=== PATIENT | female | born 1990 | race Caucasian/White ===

== ENCOUNTER 2017-03-26 15:07 | Emergency (ER) | payer OTHER ==
[2017-03-26 15:18] VITALS: BP 139/82; PULSE 93; TEMP 98.1; BMI 18.4
[2017-03-26] MEDS ORDERED: DIPHTH,PERTUSS(ACELL),TET 0.5 ML DISP.SYRIN IM ONE (16:09)
--- NOTE | 2017-03-26 16:09 | PDOC ---
History of Present Illness - General Chief Complaint: Injury Stated Complaint: RT FOOT WOUND Time Seen by Provider: 03/26/17 15:23 History Source: Patient Exam Limitations: No Limitations - History of Present Illness Initial Comments: 03/26/17 16:10 stepped on heavy gauged tach at work today and punctured through flip-flop of right foot. Patient states cleaned, put bacitracin and a Band-Aid over and came for evaluation. 03/26/17 16:19 Occurred: reports: this morning Severity: reports: mild, moderate Pain Location: reports: lower extremity (right plantar) Past History - Travel Traveled outside of the country in the last 30 days: No Close contact w/someone who was outside of country & ill: No - Past Medical History Allergies/Adverse Reactions: Allergies Allergy/AdvReac Type Severity Reaction Status Date / Time No Known Allergies Allergy Verified 03/26/17 15:17 Home Medications: Ambulatory Orders NK [No Known Home Medication] 03/26/17 Other medical history: denies - Immunization History Td Vaccination: Yes Immunization Up to Date: Yes - Psycho/Social/Smoking Cessation Hx Anxiety: No Suicidal Ideation: No Smoking Status: Yes Smoking History: Never smoked Number of Cigarettes Smoked Daily: 10 Information on smoking cessation initiated: No Hx Alcohol Use: No Drug/Substance Use Hx: No Substance Use Type: None Review of Systems - Review of Systems Able to Perform ROS?: Yes Is the patient limited Sinhala proficient: Yes Constitutional: Yes: See HPI. No: Symptoms Reported, Malaise Integumentary: Yes: Symptoms Reported, See HPI, Bruising, Other (noted puncture wound to plantar aspect midpoint right foot metatarsals ) Neurological: No: Symptoms reported All Other Systems: Reviewed and Negative *Physical Exam - Vital Signs Last Vital Signs Temp Pulse Resp BP Pulse Ox 98.1 F 93 H 19 139/82 98 03/26/17 15:16 03/26/17 15:16 03/26/17 15:16 03/26/17 15:16 03/26/17 15:16 - Physical Exam General Appearance: Yes: Nourished, Appropriately Dressed HEENT: positive: INOCENCIA, Normal ENT Inspection, TMs Normal, Pharynx Normal Neck: negative: Tender Respiratory/Chest: positive: Normal Breath Sounds Cardiovascular: positive: Regular Rhythm Extremity: positive: Normal Capillary Refill, Normal Range of Motion Integumentary: positive: Normal Color, Other (puncture wound to midpoint right proximal metatarsal area on plantar aspect of foot, no fluctuance, no tenderness with deep palpation, no bony injury. Full range of motion at toes, and ambulatory without limp.) Neurologic: positive: cyber security II-XII NML intact, Fully Oriented, Alert, Normal Mood/ Affect, Normal Response, Motor Strength 5/5 Progress Note - Progress Note Progress Note: Wound cleaned, dressed with bacitracin and Band-Aid, tetanus/diphtheria/booster updated today, will follow up as needed *DC/Admit/Observation/Transfer Diagnosis at time of Disposition: Puncture wound of plantar aspect of right foot without complication Qualifiers: Encounter type: initial encounter Qualified Code(s): S91.331A - Puncture wound without foreign body, right foot, initial encounter - Discharge Dispostion Disposition: HOME Condition at time of disposition: Stable Admit: No - Patient Instructions Printed Discharge Instructions: DI for Puncture Wound Additional Instructions: Rest, elevate foot, avoid excessive walking Avoid heavy lifting or exercise until pain and swelling is resolved or until further directed Keep area highly elevated to reduce swelling Wear supportive shoes/tennis shoes-sneakers Soak foot 3-4 times a day for the next 2-3 days until healed in warm soapy water. Reapply bacitracin ointment and bulky dressing. May use foot cushion pads, (Dr. Couch's corn pads at wound site to help lift and cushion the area until healed) Followup with private physician in one to 2 days if not improving, Return to emergency department for redness, swelling, worsened pain, or evidence of infection May use ibuprofen 2-200 mg tablets every 6 hours as needed for pain Your tetanus/diphtheria/pertussis booster was updated today - Post Discharge Activity Work/School Note: Back to Work
== END 2017-03-26 16:24 | disposition home or self-care (01) ==
LOC: JERFT 15:07
PROC: 3E0234Z Introduction of Serum, Toxoid and Vaccine into Muscle, Percutaneous Approach (ICD-10-PCS; principal; 2017-03-26)
DX: S91.331A Puncture wound without foreign body, right foot, initial encounter (principal); W22.8XXA Striking against or struck by other objects, initial encounter; Y93.89 Activity, other specified; Y92.9 Unspecified place or not applicable; F17.210 Nicotine dependence, cigarettes, uncomplicated
CPT/HCPCS: 90715; 99281-25

== ENCOUNTER 2023-05-29 22:42 | Emergency (ER) | payer OTHER ==
[2023-05-29 22:54] VITALS: RESP 18; BMI 21.4
[2023-05-29 23:48] LABS: EPI CELLS 8 /uL (0-25.1); HYALINE CASTS 0 /uL (0-3.1); URINE APPEARANCE CLEAR; URINE BACTERIA 581 /uL (0-1359); URINE BILIRUBIN NEGATIVE (NEGATIVE); URINE COLOR YELLOW; URINE GLUCOSE (UA) NEGATIVE (NEGATIVE); URINE KETONE NEGATIVE (NEGATIVE); URINE LEUK ESTERASE NEGATIVE (NEGATIVE); URINE NITRITE NEGATIVE (NEGATIVE); URINE PROTEIN NEGATIVE (NEGATIVE); URINE RBC 20 /uL (0-23.9); URINE UROBILINOGEN 0.2 mg/dL (0.2-1.0); URINE WBC 9 /uL (0-25.8)
[2023-05-29 23:52] LABS: PHENCYCLIDINE,URINE NEGATIVE (NEGATIVE)
[2023-05-29 23:53] LABS: COCAINE, UR NEGATIVE (NEGATIVE); METHADONE, UR NEGATIVE (NEGATIVE); OPIATES, URI NEGATIVE (NEGATIVE); URINE AMPHETAMINES NEGATIVE (NEGATIVE)
[2023-05-29 23:56] LABS: VENOUS BASE EXCESS -0.5 mmol/L (-2-2); VENOUS O2 SATURATION 95.7 % (70-80); VENOUS PCO2 37.6 mmHg (38-52); VENOUS PH 7.417 (7.310-7.410)
[2023-05-29 23:57] LABS: BASO % 0.8 % (0-2.0); HEMATOCRIT 37.2 % (32.4-45.2); HEMOGLOBIN 12.4 GM/dL (10.7-15.3); LYMPH % 42.6 % (8-40); MCH 27.2 pg (25.7-33.7); MCHC 33.4 g/dl (32.0-36.0); MEAN CELL VOLUME 81.5 fl (80-96); MEAN PLT VOLUME 6.5 fl (7.5-11.1); MONO % 6.4 % (3.8-10.2); NEUT % 47.2 % (42.8-82.8); PLATELET COUNT 401 10^3/uL (134-434); RBC 4.57 M/mm3 (3.60-5.2); WHITE BLOOD COUNT 7.4 K/mm3 (4.0-10.0)
[2023-05-30 00:06] LABS: URINE BARBITURATES NEGATIVE (NEGATIVE); URINE BENZODIAZEPINES POSITIVE (NEGATIVE)
[2023-05-30 00:44] LABS: ALBUMIN 3.9 g/dl (3.4-5.0); BILIRUBIN,TOTAL 0.1 mg/dL (0.2-1); BLOOD UREA NITROGEN 15.2 mg/dL (7-18); CALCIUM 8.3 mg/dL (8.5-10.1); CREATININE 0.9 mg/dL (0.55-1.3); TOT PROT 7.2 g/dl (6.4-8.2)
[2023-05-30] MEDS ORDERED: clonazePAM 0.5 MG TABLET PO ONE (01:12)
[2023-05-30] MEDS ORDERED: clonazePAM 0.5 MG TABLET ONE (01:19)
[2023-05-30] MEDS ORDERED: traZODone HCL 100 MG TABLET (FP) PO ONE (01:53)
[2023-05-30] MEDS ORDERED: traZODone HCL 100 MG TABLET (FP) ONE (02:03)
[2023-05-30 10:09] VITALS: BP 114/74; PULSE 96; TEMP 99
== END 2023-05-30 11:10 | disposition home or self-care (01) ==
LOC: JER 22:42
DX: R45.851 Suicidal ideations (principal); S60.811A Abrasion of right wrist, initial encounter; S60.812A Abrasion of left wrist, initial encounter; X78.8XXA Intentional self-harm by other sharp object, initial encounter; Z20.822 Contact with and (suspected) exposure to COVID-19
CPT/HCPCS: 0241U-QW; 36415; 80053; 80307; 81003; 82803; 84443; 84703; 85025; 87086; 93005; 93010; 99284-25